=== PATIENT | male | born 1975 | race Caucasian/White ===

== ENCOUNTER 2017-03-06 15:19 | Emergency (ER) | payer SELFPAY ==
[~2017-03-06] VITALS: Ht 170.2 cm; Wt 64.0 kg
[2017-03-06 15:24] VITALS: Ht 170.2 cm; Wt 64.0 kg
--- NOTE | 2017-03-06 18:28 | ERD ---
ER Documentation Chief Complaint Date/Time DATE: 03/06/17 TIME: 18:26 Chief Complaint head lac s/p metal fell on head today HPI 41-year-old male presents emergency room with a right parietal scalp laceration from a metal bar hitting his head today. About 4 hours ago. Patient states that it led to a laceration, but no loss of consciousness, visual changes, nausea, vomiting. He does not recall his last tetanus shot. ROS All systems reviewed and are negative except as per history of present illness. Allergies Allergies: Coded Allergies: No Known Allergy (Unverified , 03/06/17) PMhx/Soc Medical and Surgical Hx: pt denies Medical Hx Hx Alcohol Use: No Hx Substance Use: No Hx Tobacco Use: No Smoking Status: Never smoker Physical Exam Vitals Vital Signs Date Time Temp Pulse Resp B/P Pulse Ox O2 Delivery O2 Flow Rate FiO2 03/06/17 15:24 98.3 80 18 132/83 100 Physical Exam General: Well-developed, well-nourished. The patient appears in no acute distress. HEENT: Head is normocephalic, right parietal scalp has a 4 cm laceration, no active bleeding, no foreign bodies, no calvarium visible. second laceration is 2 cm. mild bleeding. No scleral icterus. Neck: Supple. Nontender. Lungs: Clear to auscultation. Normal air movement. Heart: Regular rate and rhythm. S1 and S2 are normal. No murmurs, gallops, or rubs. Abdomen: Nondistended. Extremities: No clubbing or cyanosis. Moving extremities x 4. No weakness. Neurologic: Alert and oriented 3. No focal deficits. Normal speech and gait. Skin: Normal turgor. No rash or lesions. Results 24 hrs Current Medications Medications (Trade) Dose Ordered Sig/Lilliana Route PRN Reason Start Time Stop Time Status Last Admin Dose Admin Diphtheria/ Tetanus/Acell Pertussis (Adacel) 0.5 ml ONCE ONCE IM* 03/06/17 18:30 03/06/17 18:31 DC 03/06/17 18:43 Acetaminophen (Tylenol Tab) 650 mg ONCE ONCE PO 03/06/17 18:30 03/06/17 18:31 DC 03/06/17 18:42 DIAGNOSTIC IMAGING REPORT Patient: WANDER NUNO : 1975 Age: 41 Sex: M [id number] DOS: 03/06/17 1815 Ordering MD: ANKIT SIMMS PA-C Location: [facility] Room/Bed: PROCEDURE: CT Brain without. CLINICAL INDICATION: Right parietal scalp laceration, injury, pain. TECHNIQUE: A CT of the brain was performed on multidetector high-resolution CT scanner utilizing axial sections from the skull base through the vertex without contrast. The scan was reviewed in soft tissue brain and high frequency resolution bone algorithm windows. Images were reviewed on a high- resolution PACS workstation. One or more the following does reduction techniques were utilized: Automated exposure control, adjustment of the mA/ or kV according to patient's size, or use of iterative reconstruction technique. The exam CTDI = 44.46 mGy and the DLP = 720.23 mGy-cm. COMPARISON: None available. FINDINGS: The ventricles and sulci are age-appropriate. There is no intracranial hemorrhage, mass effect or midline shift. No abnormal intra-axial or extra- axial fluid collections are seen. The eddy/white matter differentiation is preserved. No acute skull abnormality is noted. The visualized paranasal sinuses are essentially clear. Right parietal scalp swelling, hematoma and laceration are noted without underlying skull fracture. IMPRESSION: 1. No acute intracranial hemorrhage, transcortical infarction or mass effect. 2. Right parietal scalp swelling, hematoma and laceration are noted without underlying skull fracture. RPTAT: HH .Silverio Riddle MD, MD Date Time Electronically viewed and signed by .Silverio Riddle MD, MD on 03/06/2017 20: 02 .N/ CC: ANKIT SIMMS PA-C Procedures/MDM ED course: He was given Tylenol, and his tetanus is updated. Laceration Repair by me: Patient was verbally consented Anesthesia: 1% lidocaine locally Location: Right parietal scalp, crown Tendon/Joint/Nerves: No injury Foreign body: None detected after copious irrigation and exploration Technique: Britt x3, britt x3 Complexity: No subcutaneous sutures/mucosal repair/ edge excision Post Closure Length: 4 cm, 2 cm Patient's bleeding was easily controlled in the department and there is no indication of anemia. No evidence of compartment syndrome, neurologic injury, vascular injury, open joint, tendon laceration, or foreign body. Patient is appropriate for outpatient follow up. 48 hour wound check. Scar minimization instructions given. MDM: 41 yo male comes to the ER with a parietal scalp, and top of scalp, negative CT for intracranial hemorrhage. Lacerations were closed with britt, ready to discharge. Departure Diagnosis: Primary Impression: Laceration Additional Impression: Head injury, acute, without loss of consciousness Condition: Good ANKIT SIMMS PA-C Mar 06, 2017 18:28
[2017-03-06] MEDS ORDERED: DIPHTH/TET/ACEL PERTUSS (ADULT) 0.5 ML VIAL IM* ONE (18:30)
[2017-03-06] MEDS ORDERED: ACETAMINOPHEN 325 MG TAB PO ONE (18:30)
--- NOTE | 2017-03-06 20:02 | RADRPT ---
PROCEDURE: CT Brain without. CLINICAL INDICATION: Right parietal scalp laceration, injury, pain. TECHNIQUE: A CT of the brain was performed on multidetector high-resolution CT scanner utilizing a xial sections from the skull base through the vertex without contrast. The scan was reviewed in sof t tissue brain and high frequency resolution bone algorithm windows. Images were reviewed on a high -resolution PACS workstation. One or more the following does reduction techniques were utilized: Aut omated exposure control, adjustment of the mA/ or kV according to patient's size, or use of iterativ e reconstruction technique. The exam CTDI = 44.46 mGy and the DLP = 720.23 mGy-cm. COMPARISON: None available. FINDINGS: The ventricles and sulci are age-appropriate. There is no intracranial hemorrhage, mass effect or mi dline shift. No abnormal intra-axial or extra-axial fluid collections are seen. The eddy/white yesy er differentiation is preserved. No acute skull abnormality is noted. The visualized paranasal sinus es are essentially clear. Right parietal scalp swelling, hematoma and laceration are noted without u nderlying skull fracture. IMPRESSION: 1. No acute intracranial hemorrhage, transcortical infarction or mass effect. 2. Right parietal scalp swelling, hematoma and laceration are noted without underlying skull fractu re. RPTAT: HH .Silverio Riddle MD, MD Date Time Electronically viewed and signed by .Silverio Riddle MD, MD on 03/06/2017 20:02 .N/
== END 2017-03-06 20:51 | disposition home or self-care (01) ==
LOC: FTE 15:19
DX: S01.01XA Laceration without foreign body of scalp, initial encounter (principal); W20.8XXA Other cause of strike by thrown, projected or falling object, initial encounter; Y92.9 Unspecified place or not applicable; Z23 Encounter for immunization
CPT/HCPCS: 70450; 90471; 90715

== ENCOUNTER 2017-03-11 22:47 | Emergency (ER) | payer SELFPAY ==
[~2017-03-11] VITALS: Ht 167.6 cm; Wt 66.0 kg
[2017-03-11 22:52] VITALS: Ht 167.6 cm; Wt 66.0 kg
--- NOTE | 2017-03-11 23:18 | ERD ---
ER Documentation Chief Complaint Date/Time DATE: 03/11/17 TIME: 23:13 Chief Complaint wound check- britt in her head HPI 41-year-old male presented ED with 4 removal of britt. He has sustained laceration and had britt placed on his scalp on 03/06/2017. Patient stated that he is burning sensation at the site of britt. Denies fever or chills. Denies wound drainage. ROS All systems reviewed and are negative except as per history of present illness. Allergies Allergies: Coded Allergies: No Known Allergy (Unverified , 03/06/17) PMhx/Soc History of Surgery: No Anesthesia Reaction: No Hx Neurological Disorder: No Hx Respiratory Disorders: No Hx Cardiac Disorders: No Hx Psychiatric Problems: No Hx Miscellaneous Medical Probl: No Hx Alcohol Use: No Hx Substance Use: No Hx Tobacco Use: No Smoking Status: Never smoker Physical Exam Vitals Vital Signs Date Time Temp Pulse Resp B/P Pulse Ox O2 Delivery O2 Flow Rate FiO2 03/11/17 22:52 97.8 72 17 152/77 99 Physical Exam General: Well-developed, well-nourished, conscious and coherent, in no distress Skin: Warm and dry without rash, good texture and turgor Head: Normocephalic without evidence of trauma. 6 britt noted over 2 laceration sites. Eyes: Sclera and conjunctivae normal; pupils equal, round, and reactive to light; extraocular movements are intact Chest: Normal AP diameter. Good expansion without retractions. Nontender. Lungs are clear to auscultate bilaterally with good tidal volume Heart: Regular rate and rhythm. No murmur, rub, or gallops heard Extremities: Full range of motion. Good strength bilaterally. No clubbing, cyanosis, or edema. Peripheral pulses are intact. Sensation intact Neuro: Alert and oriented 4, GCS 15. Cranial nerves grossly intact. Motor and sensory exams nonfocal. Moves all extremities. Speech clear. Gait normal Procedures/MDM Staple Removal by me: Britt removed with staple remover without incident. Total number staple removed: 6 Wound shows no evidence of infection, foreign body, neurologic injury, vascular injury, open joint or tendon laceration. Patient to follow up PRN. Departure Diagnosis: Primary Impression: Removal of britt Condition: Good Patient Instructions: Staple Removal, No Complication [facility] Usted se zainab corey un examen mdico de control que le indica que no est en quita condicin que requiera tratamiento urgente en el Departamento de Emergencia. Un estudio ms profundo y el tratamiento de pate condicin pueden esperar sin ningn riesgo hasta que usted sea atendida/o en el consultorio de pate mdico o quita cl [place]. Es responsabilidad suya arreglar quita justin para el seguimiento del mariama. MANEJO DE CONDICIONES NO URGENTES EN EL FUTURO 1) Si usted tiene un mdico de atencin primaria: Usted debera llamar a pate mdico de atencin primaria antes de venir al departamento de emergencia. Despus de las horas de consultorio, pate doctor o pate asociado/a est disponible por telfono. El mdico o enfermero de jovi en el servicio telefnico puede asesorarle por phi medio para atender el problema, o mariama contrario se puede programar quita justin. 2) Si usted no tiene un mdico de atencin primaria: Llame al mdico o clnica de referencia que aparece abajo eliu las horas de consultorio para hacer quita justin para que le vean. CLINICAS: [facility] [id number] [facility] [phone] [address]. [facility] [phone] [address] [facility] [phone] [id number] [facility]. [place] [id number] [phone] [facility]. [phone] [address] Additional Instructions: Llame al doctor nombrado abajo (Referral Sources) MAANA y shreyas quita JUSTIN PARA DENTRO DE QUITA SEMANA. Dgale a la secretaria que nosotros le instruimos hacer esta justin.Avise o llame si pate condicin se empeora antes de la justin. BRISEYDA HINTON. FIRE EXTINGUISHER TECHNICIAN Mar 11, 2017 23:18
== END 2017-03-11 23:23 | disposition home or self-care (01) ==
LOC: FTE 22:47
DX: Z48.02 Encounter for removal of sutures (principal); R40.2412 Glasgow coma scale score 13-15, at arrival to emergency department
CPT/HCPCS: 99281